=== PATIENT | male | born 1965 | race Caucasian/White ===

== ENCOUNTER 2020-12-12 01:04 | Emergency (ER) | payer OTHER ==
[~2020-12-12] VITALS: Ht 190.5 cm; Wt 104.1 kg
[~2020-12-12 01:04] MED LIST: IBUP-1223 PO
[2020-12-12] MEDS ORDERED: MORPHINE SULFATE 4 MG/ML, 1ML ONE ×2 (02:36→04:10)
[2020-12-12] MEDS ORDERED: ONDANSETRON 2MG/ML, 2ML ONE (02:36)
--- NOTE | 2020-12-12 02:38 | NUR ---
PT PRESENTS TO ER FOR LEFT SIDED ABDOMINAL PAIN RADIATING TO THE FLANK, PT ALSO COMPLAINING OF N/V, PT STATES THIS HAS BEEN GOING ON FOR A FEW HOURS NOW, PT WAS WOKEN UP OUT OF SLEEP WITH THE PAIN, PT HAS HISTORY OF KIDNEY STONES AND STATES THIS FEELS LIKE THE SAME AGAIN
[2020-12-12] MEDS: MORPHINE SULFATE 4 MG/ML, 1ML IVPush PRN ×2 (02:43→04:12)
[2020-12-12] MEDS ORDERED: ONDANSETRON 2MG/ML, 2ML IVPush ONE (03:00)
[2020-12-12 03:02] LABS: ANION GAP 5 mmol/L (5-15); BILIRUBIN,TOTAL 0.5 mg/dL (0.2-1.0); CALCIUM 8.7 mg/dL (8.5-10.1); CHLORIDE 107 mmol/L (98-107); CREATININE 1.17 mg/dL (0.7-1.3)
[2020-12-12 03:03] LABS: ALANINE AMINOTRANSFERASE 29 U/L (12-78); ALBUMIN 3.5 g/dL (3.4-5.0); ALKALINE PHOSPHATASE 105 U/L (45-117)
[2020-12-12 03:14] LABS: BASOPHILS % (AUTO) 1 % (0-1); EOSINOPHILS % (AUTO) 4 % (1-7); LYMPHOCYTES % (AUTO) 33 % (22-44); MEAN CORPUSCULAR HEMOGLOBIN 31.6 pg (27.5-34.5); MEAN CORPUSCULAR HGB CONC 34.4 g/dL (33.2-36.2); MEAN PLATELET VOLUME 9.2 fL (7.4-10.4); MONOCYTES % (AUTO) 10 % (2-9); NEUTROPHILS % (AUTO) 53 % (42-75); PLATELET COUNT 142 x10^3/uL (130-400); RED BLOOD COUNT 5.17 x10^6/uL (4.38-5.82); RED CELL DISTRIBUTION WIDTH 13.5 % (9.4-14.8)
--- NOTE | 2020-12-12 03:37 | NUR ---
PT LAYING IN BED, A/OX3, ALL NEEDS IN REACH, CALL LIGHT IN REACH, SON AT BEDSIDE NOW, PT REPORTS PAIN AT A 4/10 AND STATES ITS MORE OF A DISCOMFORT RATHER THAN A PAIN NOW
--- NOTE | 2020-12-12 04:17 | NUR ---
TASK RN: PT AMBULATORY TO RESTROOM WITH A SMOOTH AND STEADY GAIT, UA OBTAINED AND SENT TO LAB AT THIS TIME. PT REPORTS PAIN ON LEFT SIDE NOW INCREASED TO A 9/10, PT MEDICATED PER MAR FOR DISCOMFORT AT THIS TIME. Patient is resting comfortably in bed. Bed in lowest, rails engaged, call light on lap. Vital Signs within normal limits. WCTM. AWAITING UA SAMPLE
[2020-12-12 04:25] LABS: MICROSCOPIC AUTO
[2020-12-12] MEDS ORDERED: KETOROLAC 30 MG/1 ML ONE (04:52)
[2020-12-12] MEDS ORDERED: KETOROLAC 30 MG/1 ML IVPush ONE (05:00)
[2020-12-12 05:29] VITALS: BP 123/85
== END 2020-12-12 05:31 | disposition home or self-care (01) ==
LOC: ED 01:34
DX: N20.1 Calculus of ureter (principal)
CPT/HCPCS: 36415; 74176; 80053; 81001; 85025; 96374; 96375; 96376; 99284; J1885; J2270; J2405